=== PATIENT | female | born 1965 | race Caucasian/White ===

== ENCOUNTER 2019-06-22 15:36 | Outpatient (CLI) | payer BC ==
--- NOTE | 2019-06-22 16:28 | MMO ---
Bilateral MAMMO Bilat Screen [facility]. CLINICAL HISTORY: Patient is 53 years old and is seen for screening. The patient has the following family history of breast cancer: cousin female, at age 65, 2nd cousin. The patient has no personal history of cancer. VIEWS: The views performed were: bilateral craniocaudal with tomosynthesis and bilateral mediolateral oblique with tomosynthesis. FILMS COMPARED: The present examination has been compared to prior imaging studies performed at [facility] on 06/28/2013, 09/12/2014, 09/23/2015 and 09/24/2016. MAMMOGRAM FINDINGS: The breasts are heterogeneously dense, which could obscure a lesion on mammography. There are no suspicious masses, suspicious calcifications, or new areas of architectural distortion. IMPRESSION: THERE IS NO MAMMOGRAPHIC EVIDENCE OF MALIGNANCY. A ROUTINE FOLLOW-UP MAMMOGRAM IN 1 YEAR IS RECOMMENDED. THE RESULTS OF THIS EXAM WERE SENT TO THE PATIENT. ACR BI-RADS Category 1 - Negative MAMMOGRAPHY NOTE: 1. A negative mammogram report should not delay a biopsy if a dominant of clinically suspicious mass is present. 2. Approximately 10% to 15% of breast cancers are not detected by mammography. 3. Adenosis and dense breasts may obscure an underlying neoplasm. Reported by: BERRY CALLAHAN MD Electonically Signed: [id number]
== END 2019-06-22 15:37 | disposition home or self-care (01) ==
LOC: BICMAMMO 15:36
PROVIDERS: ATTEND Physician Assistant
DX: Z12.31 Encounter for screening mammogram for malignant neoplasm of breast (principal); Z80.3 Family history of malignant neoplasm of breast
CPT/HCPCS: 77063; 77067

== ENCOUNTER 2020-09-04 16:54 | Outpatient (CLI) | payer BC ==
--- NOTE | 2020-09-04 17:17 | SJPRAD ---
EXAM: Chest PA and lateral: HISTORY: Chest tightness COMPARISON: 11/08/2014 FINDINGS: Heart: Normal cardiac silhouette Aorta: Unremarkable Pulmonary vessels: Normal Costophrenic angles: Costophrenic angles are clear. Lungs: 2.5 cm right hilar mass. Lungs are hyperinflated. Pneumothorax: No pneumothorax Osseous structures: No osseous abnormalities IMPRESSION: 1. Hyperinflation. 2. Right hilar mass. Consider chest CT CODE T
== END 2020-09-04 16:55 | disposition home or self-care (01) ==
LOC: SCSRAD 16:54
PROVIDERS: ATTEND Family Medicine
DX: R07.89 Other chest pain (principal); R91.8 Other nonspecific abnormal finding of lung field
CPT/HCPCS: 87635; U0003

== ENCOUNTER 2020-09-13 10:23 | Outpatient (CLI) | payer BC ==
--- NOTE | 2020-09-13 13:53 | CT ---
CT CHEST WITH IV CONTRAST: 09/13/20 PROVIDED CLINICAL HISTORY: Abnormal chest radiograph. FINDINGS: Correlation is made with a chest radiograph dated 09/04/2020. The heart, pericardium and great vessels demonstrate an unremarkable CT appearance. There is no evidence for thoracic lymph node enlargement. There is near complete atelectasis of the r ight middle lobe with marked bronchiectasis involving the right middle lobe. There are several noncal cified nodular densities present within the right upper lobe, the largest of which measures about 1. 1 cm in greatest transverse dimension. There are patchy areas of ground glass opacity involving the lingula with consolidation involving the far medial aspects of the lingula. The right and left lower lobes appear free of significant opacity. The airway appears otherwise paten t and of normal caliber. There is no pleural fluid, pleural thickening or pneumothorax apparent. The visualized portions of the upper abdomen appear unremarkable. The osseous structures demonstrate no concerning lytic or blastic lesions. IMPRESSION: 1. Near complete atelectasis of the right middle lobe with conspicuous bronchiectatic change inv olving the right middle lobe. 2. Right upper lobe and lingular parenchymal opacities, likely infectious in nature. Atypical in fection should be considered. Pulmonary consultation is recommended. POS: SOHAN
== END 2020-09-13 10:24 | disposition home or self-care (01) ==
LOC: SCSCT 10:23
PROVIDERS: ATTEND Physician Assistant
DX: R91.8 Other nonspecific abnormal finding of lung field (principal); J98.11 Atelectasis; J47.9 Bronchiectasis, uncomplicated
CPT/HCPCS: 71260

== ENCOUNTER 2020-09-26 10:20 | Outpatient (CLI) | payer BC ==
--- NOTE | 2020-09-26 11:47 | MMO ---
Bilateral MAMMO Bilat Screen [facility]. CLINICAL HISTORY: Patient is 55 years old and is seen for screening. The patient has the following family history of breast cancer: cousin female, at age 65, 2nd cousin. The patient has no personal history of cancer. VIEWS: The views performed were: bilateral craniocaudal with tomosynthesis and bilateral mediolateral oblique with tomosynthesis. FILMS COMPARED: The present examination has been compared to prior imaging studies performed at [facility] on 09/12/2014, 09/23/2015, 09/24/2016 and 06/22/2019. This study has been interpreted with the assistance of computer-aided detection. MAMMOGRAM FINDINGS: The breasts are heterogeneously dense, which could obscure a lesion on mammography. There are no suspicious masses, suspicious calcifications, or new areas of architectural distortion. IMPRESSION: THERE IS NO MAMMOGRAPHIC EVIDENCE OF MALIGNANCY. A ROUTINE FOLLOW-UP MAMMOGRAM IN 1 YEAR IS RECOMMENDED. THE RESULTS OF THIS EXAM WERE SENT TO THE PATIENT. ACR BI-RADS Category 1 - Negative MAMMOGRAPHY NOTE: 1. A negative mammogram report should not delay a biopsy if a dominant of clinically suspicious mass is present. 2. Approximately 10% to 15% of breast cancers are not detected by mammography. 3. Adenosis and dense breasts may obscure an underlying neoplasm. Reported by: NII KOENIG MD Electonically Signed: [id number]
== END 2020-09-26 10:21 | disposition home or self-care (01) ==
LOC: BICMAMMO 10:20
PROVIDERS: ATTEND Physician Assistant
DX: Z12.31 Encounter for screening mammogram for malignant neoplasm of breast (principal); Z80.3 Family history of malignant neoplasm of breast
CPT/HCPCS: 77063; 77067

== ENCOUNTER 2021-08-04 21:11 | Emergency (ER) | payer OTHER, BC ==
[2021-08-04] MEDS ORDERED: Boostrix 0.5 ML (Tdap) VIAL ONE ×2 (23:06→23:18)
[2021-08-04] MEDS ORDERED: Rabies Vaccine Human 2.5 UNITS VIAL IM ONE (23:30)
[2021-08-05] MEDS ORDERED: Bacitracin 1 PK ONE (00:32)
== END 2021-08-05 00:37 | disposition home or self-care (01) ==
LOC: ERS 21:11
DX: S61.452A Open bite of left hand, initial encounter (principal); W54.0XXA Bitten by dog, initial encounter; J45.909 Unspecified asthma, uncomplicated
CPT/HCPCS: 90376; 90471; 90472; 90675; 90715; 96372

== ENCOUNTER → 2021-08-08 | Day surgery (SDC) | payer BC ==
[~2021-08-08] MED LIST: Rabies Vaccine Human 2.5 UNITS VIAL IM ONE
== END ==
LOC: ER/OP 19:39
DX: Z23 Encounter for immunization (principal); J45.909 Unspecified asthma, uncomplicated; Z88.5 Allergy status to narcotic agent
CPT/HCPCS: 90471; 90675

== ENCOUNTER → 2021-08-17 | Emergency (ER) | payer BC | LOC: ERS 15:21 | DX: Z23 Encounter for immunization (principal) | CPT/HCPCS: 90471; 90675 ==

== ENCOUNTER → 2021-08-19 | Day surgery (SDC) | payer BC | LOC: ER/OP 19:02 | PROVIDERS: ATTEND Pathology Anatomic Pathology & Clinical Pathology | DX: Z23 Encounter for immunization (principal); Z88.5 Allergy status to narcotic agent | CPT/HCPCS: 90471; 90675 ==

== ENCOUNTER 2022-04-08 17:19 | Emergency (ER) | payer BC ==
[2022-04-08] MEDS ORDERED: Lidocaine 1% PF 5 ML VIAL ONE (17:58)
[2022-04-08] MEDS ORDERED: Rabies Vaccine Human 2.5 UNITS VIAL ONE (19:38)
== END 2022-04-08 19:18 | disposition home or self-care (01) ==
LOC: ERS 17:19
DX: S61.251A Open bite of left index finger without damage to nail, initial encounter (principal); S51.851A Open bite of right forearm, initial encounter; S41.151A Open bite of right upper arm, initial encounter; S80.812A Abrasion, left lower leg, initial encounter; S80.811A Abrasion, right lower leg, initial encounter; Z23 Encounter for immunization; W54.0XXA Bitten by dog, initial encounter
CPT/HCPCS: 12002; 90471; 90675

== ENCOUNTER 2023-07-29 03:09 | Emergency (ER) | payer OTHER, SELFPAY ==
[2023-07-29] MEDS ORDERED: Lidocaine 1% PF 5 ML VIAL ONE (03:33)
[2023-07-29] MEDS ORDERED: Bacitracin 1 PK ONE (04:37)
[2023-07-29] MEDS ORDERED: Amoxicillin/Potassium Clav 875 MG TAB ONE (05:14)
== END 2023-07-29 05:31 | disposition home or self-care (01) ==
LOC: ERS 03:09
DX: S01.551A Open bite of lip, initial encounter (principal); W54.0XXA Bitten by dog, initial encounter
CPT/HCPCS: 12013

== ENCOUNTER 2023-10-27 16:33 | Outpatient (CLI) | payer BC | END 2023-10-27 16:34 | disposition home or self-care (01) | LOC: SCSRAD 16:33 | PROVIDERS: ATTEND Physician Assistant | DX: J06.9 Acute upper respiratory infection, unspecified (principal); J98.4 Other disorders of lung; M43.9 Deforming dorsopathy, unspecified | CPT/HCPCS: 71046 ==

== ENCOUNTER 2025-06-30 17:50 | Emergency (ER) | payer BC ==
[2025-06-30 18:32] LABS: #Basophils 0.13 10x3/uL (0.0-0.2); #Eosinophils 1.97 10x3/uL (0.0-0.7); #Monocytes 0.79 10x3/uL (0.11-0.59); #Neutrophils 4.33 10x3/uL (1.40-6.50); %Basophils 1.2 % (0.0-1.0); %Eosinophils 18.8 % (0.0-10.0); %Lymphocytes 30.6 % (21.0-51.0); %Monocytes 7.5 % (0.0-10.0); %Neutrophils 41.4 % (42.0-75.0); Hematocrit 39.4 % (36.0-47.0); Hemoglobin 12.6 g/dL (12.0-16.0); Mean Corpuscular Hemoglobin 30.7 pg (27.0-31.0); Mean Corpuscular Volume 96.1 fL (78.0-98.0); Platelet Count 438 10x3/uL (130-400); Red Blood Cell (RBC) Count 4.10 mill/uL (4.20-5.40); White Blood Cell (WBC) Count 10.48 10x3/uL (4.8-10.8)
[2025-06-30 18:45] LABS: ALT (SGPT) 17 U/L (Less than 34); AST (SGOT) 26 U/L (11-34); Albumin 4.0 g/dL (3.1-4.5); Alkaline Phosphatase 108 U/L (40-110); Anion Gap 14 mmol/L (10-20); BUN (Urea Nitrogen) 11 mg/dL (9.8-20.1); Bilirubin, Total 0.4 mg/dL (0.3-1.2); Calc. Creatinine Clearance 0 mL/min (70-130); Calcium 8.8 mg/dL (7.8-10.44); Carbon Dioxide 22 mmol/L (22-29); Chloride 105 mmol/L (98-107); Globulin 3.1 g/dL (2.4-3.5); Glucose 142 mg/dL (70-105); Potassium 3.7 mmol/L (3.5-5.1); Sodium 137 mmol/L (136-145)
[2025-06-30] MEDS ORDERED: PROPOFOL 20 ML ONE (19:42)
== END 2025-06-30 23:00 | disposition home or self-care (01) ==
LOC: ERS 17:50
DX: S52.501A Unspecified fracture of the lower end of right radius, initial encounter for closed fracture (principal); W11.XXXA Fall on and from ladder, initial encounter; Y93.89 Activity, other specified
CPT/HCPCS: 25600; 36415; 71045; 80053; 85025; 96374; 96375; 99152; J0665; J2704; J3010

== ENCOUNTER 2025-07-09 13:16 | Outpatient (CLI) | payer BC ==
[2025-07-09 15:23] LABS: #Basophils 0.07 10x3/uL (0.0-0.2); #Eosinophils 1.36 10x3/uL (0.0-0.7); #Monocytes 0.55 10x3/uL (0.11-0.59); #Neutrophils 2.29 10x3/uL (1.40-6.50); %Basophils 1.1 % (0.0-1.0); %Eosinophils 21.5 % (0.0-10.0); %Lymphocytes 32.2 % (21.0-51.0); %Monocytes 8.7 % (0.0-10.0); %Neutrophils 36.2 % (42.0-75.0); Hematocrit 35.6 % (36.0-47.0); Hemoglobin 11.4 g/dL (12.0-16.0); Mean Corpuscular Hemoglobin 30.6 pg (27.0-31.0); Mean Corpuscular Volume 95.7 fL (78.0-98.0); Platelet Count 450 10x3/uL (130-400); Red Blood Cell (RBC) Count 3.72 mill/uL (4.20-5.40); White Blood Cell (WBC) Count 6.33 10x3/uL (4.8-10.8)
[2025-07-09 16:15] LABS: Anion Gap 11 mmol/L (10-20); BUN (Urea Nitrogen) 11 mg/dL (9.8-20.1); Calc. Creatinine Clearance 0 mL/min (70-130); Calcium 8.6 mg/dL (7.8-10.44); Carbon Dioxide 27 mmol/L (22-29); Chloride 104 mmol/L (98-107); Glucose 86 mg/dL (70-105); Potassium 4.0 mmol/L (3.5-5.1); Sodium 138 mmol/L (136-145)
== END 2025-07-09 13:17 | disposition home or self-care (01) ==
LOC: LABBT 13:16
PROVIDERS: ATTEND Orthopaedic Surgery
DX: Z01.818 Encounter for other preprocedural examination (principal); S52.501A Unspecified fracture of the lower end of right radius, initial encounter for closed fracture
CPT/HCPCS: 80048; 85025; 93005; 93010

== ENCOUNTER 2025-07-12 06:22 | Day surgery (SDC) | payer BC ==
[2025-07-09 13:33] VITALS: BMI 20.7
[2025-07-12] MEDS ORDERED: Lidocaine 1% (PF) 30 ML VIAL ONE (06:49)
[2025-07-12] MEDS ORDERED: Ropivacaine 0.5% HCl/PF (150 MG/30 ML VIAL) ONE (06:49)
[2025-07-12] MEDS ORDERED: Ropivacaine 0.2% HCl/PF 20 ML ONE (06:49)
[2025-07-12] MEDS ORDERED: CEFAZOLIN 2 GM VIAL ONE (07:10)
[2025-07-12] MEDS ORDERED: PROPOFOL 20 ML ONE (07:16)
[2025-07-12] MEDS ORDERED: Lidocaine 1% PF 5 ML VIAL ONE (07:17)
[2025-07-12] MEDS ORDERED: Ondansetron PF 4 MG/2 ML Vial ONE (07:37)
== END 2025-07-12 10:43 | disposition home or self-care (01) ==
LOC: SDC 06:22
PROVIDERS: ATTEND Orthopaedic Surgery
PROC: 0PSH04Z Reposition Right Radius with Internal Fixation Device, Open Approach (ICD-10-PCS; principal; 2025-07-12)
DX: S52.501A Unspecified fracture of the lower end of right radius, initial encounter for closed fracture (principal); J45.909 Unspecified asthma, uncomplicated; E78.00 Pure hypercholesterolemia, unspecified; Z79.899 Other long term (current) drug therapy; Z88.5 Allergy status to narcotic agent; Z88.8 Allergy status to other drugs, medicaments and biological substances; W11.XXXA Fall on and from ladder, initial encounter
CPT/HCPCS: C1713; J1100; J2250; J2405; J2704; J2795; J3010

== ENCOUNTER 2025-11-20 14:09 | Outpatient (CLI) | payer BC | END 2025-11-20 14:10 | disposition home or self-care (01) | LOC: SCSRAD 14:09 | PROVIDERS: ATTEND Nurse Practitioner Family | DX: R05.1 Acute cough (principal); R91.8 Other nonspecific abnormal finding of lung field | CPT/HCPCS: 71046 ==